=== PATIENT | female | born 1970 | race Caucasian/White ===

== ENCOUNTER → 2019-05-29 17:25 | Outpatient (CLI) | payer BC ==
[2019-05-29 17:42] LABS: BASOPHILS 0.2 % (0-2); EOSINOPHILS 6.5 % (0-7); HEMATOCRIT 38.5 % (36.0-48.0); IMMATURE GRANULOCYTES 0.4 % (0-5); LYMPHOCYTES 34.4 % (15-50); MCHC 33.8 g/dL (31.0-37.0); MCV 85.7 fL (80.0-100.0); MONOCYTES 7.7 % (2-11); NEUTROPHILS 50.8 % (40-80); PLATELET COUNT 301 10x3/uL (130-400); RBC 4.49 10x6/uL (4.00-5.40); RDW 14.3 % (11.5-14.5); WBC 8.6 10x3/uL (4.8-10.8)
[2019-05-29 18:04] LABS: URIC ACID 3.7 mg/dL (2.6-7.2)
[2019-05-29 18:18] LABS: C-REACTIVE PROTEIN 0.2 mg/dL (0.0-0.9)
[2019-05-29 21:43] LABS: ERYTHROCYTE SEDIMENTATION RATE 10 mm/hr (0-30)
[2019-05-31 12:09] LABS: ANA REFLEX - DIRECT Negative (Negative)
== END | disposition home or self-care (01) ==
LOC: D.LABREF 17:25
PROVIDERS: ATTEND Clinical Nurse Specialist Family Health
DX: M15.9 Polyosteoarthritis, unspecified (principal)